=== PATIENT | male | born 1950 | race Caucasian/White ===

== ENCOUNTER 2020-01-22 14:13 | Emergency (ER) | payer MEDICARE, BC ==
--- NOTE | 2020-01-22 14:52 | XRAY ---
Indication: Pain and weakness. Stroke. Multiple contiguous axial images obtained through the head without contrast. Comparison: April 18, 2005. There is age-appropriate global atrophy and minimal periventricular degenerative micro-ischemia bilaterally. New large focus of left temporal occipital encephalomalacia, sequela from old hemorrhage. No acute intracranial hemorrhage, hydrocephalus, or mass effect. Fourth ventricle is midline. Bony calvarium intact. There is mild mucosal thickening of both maxillary and ethmoid sinuses. Mastoid air cells are clear. Impression: 1. 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 2. Atrophy and degenerative micro-ischemia within normal limits for patient's age. 3. No acute intracranial abnormalities. 4. Incidental paranasal sinus disease.
--- NOTE | 2020-01-22 15:08 | XRAY ---
Indication: Chest pain. Comparison: August 16, 2013. Portable chest demonstrates new left costophrenic angle blunting favoring tiny pleural effusion/thickening. Remaining lungs clear. Heart is not enlarged again demonstrating CABG surgery and left AICD. New large bore right dialysis catheter. Bony thorax intact again with mild osteopenia and degenerative changes. Impression: 1. New left costophrenic pleural effusion/thickening and right-sided dialysis catheter. 2. Negative for acute pneumonic process or CHF.
[2020-01-22 15:15] LABS: Absolute Neutrophil Ct (ANC) 6.16 (1.4-6.9); BASOPHIL % 0.4 % (0.0-0.4); Basophil (Absolute #) 0.03 (0-0.4); Eosinophil % 1.5 % (0.00-5.0); Eosinophil (Absolute #) 0.13 (0-0.5); Hemoglobin 11.4 gm/dl (12.5-18.0); Lymphocyte (Absolute #) 1.21 (1.0-4.6); Lymphocytes % 14.3 % (24.0-44.0); Mean Cell Volume 102.9 fl (78-100); Mean Corpuscular Hemoglobin 33.5 pg (26-32); Mean Corpuscular Hgb Concent. 32.6 g/dl (32-36); Mean Platelet Volume 9.4 fl (7.5-11.0); Monocyte (Absolute #) 0.91 (0.0-1.3); Monocytes % 10.8 % (0.0-12.0); Platelet Count 307 K/mm3 (150-450); Red Cell Distribution Width 15.9 % (11.5-14.0); White Blood Count 8.4 K/mm3 (4.0-10.5)
[2020-01-22 16:06] LABS: ALBUMIN 3.7 g/dL (3.5-5.0); ANION GAP 10.7 MEQ/L (5-15); BILIRUBIN,TOTAL 0.5 mg/dL (0.2-1.3); Creatinine 1 1.53 mg/dL (0.66-1.25); EST GLOMERULAR FILTRATION RATE 47.9 ML/MIN; Potassium 4.4 mmol/L (3.5-5.1); Total Protein 6.9 g/dL (6.3-8.2)
[2020-01-22 16:10] LABS: Amphetamine,Urine NEGATIVE (NEGATIVE); Barbiturate,Urine NEGATIVE (NEGATIVE); Benzodiazepine,Urine NEGATIVE (NEGATIVE); Cocaine,Urine NEGATIVE (NEGATIVE); Methadone,Urine NEGATIVE (NEGATIVE); Opiate,Urine NEGATIVE (NEGATIVE); PCP,Urine NEGATIVE (NEGATIVE); THC,Urine NEGATIVE (NEGATIVE)
[2020-01-22 17:23] VITALS: BP 130/73
--- NOTE | 2020-01-22 17:28 | ERPHSYRPT ---
- History of Present Illness Time Seen by Provider: 01/22/20 14:45 Source: patient, family Exam Limitations: clinical condition (Year memory problems following his intracranial bleed 5 years ago) Patient Subjective Stated Complaint: leg weakness Triage Nursing Assessment: pt to ED c/o bilat lower leg weakness onset today getting home from dialysis. pt called and states she could not get him in the house from dialysis and called 911. pt denies pain or any other complaints, just "when my brain tells my legs to move they don't want to." A&Ox4. denies CVA hx. 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 This involve the left temporal occipital. Has a history of a remote lower back injury. He developed weakness in the lower ext remities yesterday and today after dialysis was so weak he could not walk into the house per his . He also 2 weeks ago went to a physician in [place] and was found to have urinary retention of greater than a liter. A Hu catheter was anchored he denies any problems with his bowels he denies any saddle paresthesia. He denies any stool incontinence. Patient is a dialysis patient and had been returned from dialysis today. Denies any neck pain Timing/Duration: yesterday Severity: moderate Character of Deficits: new weakness Deficits: cannot stand, cannot walk Baseline/Normal Cognition: alert oriented x 3 Current Cognition: alert oriented x 3 Baseline Gait: walks w/o assistance Hx Tetanus, Diphtheria Vaccination/Date Given: Yes Hx Influenza Vaccination/Date Given: Yes Hx Pneumococcal Vaccination/Date Given: Yes Travel Risk - International Travel Have you traveled outside of the country in past 3 weeks: No - Coronavirus Screening Are you exhibiting any of the following symptoms?: No Close contact with a COVID-19 positive Pt in past 14-21 Days: No - Review of Systems Constitutional: No Fever, No Chills Eyes: No Symptoms Ears, Nose, & Throat: No Symptoms Respiratory: No Cough, No Dyspnea Cardiac: No Chest Pain, No Edema, No Syncope Abdominal/Gastrointestinal: No Abdominal Pain, No Nausea, No Vomiting, No Diarrhea Genitourinary Symptoms: No Dysuria Musculoskeletal: Back Pain, No Neck Pain Skin: No Rash Neurological: Focal Weakness, Parasthesia, No Dizziness, No Sensory Changes Psychological: No Symptoms Endocrine: No Symptoms All Other Systems: Reviewed and Negative - Past Medical History Pertinent Past Medical History: Yes Cardiac History: Hypertension, Other Endocrine Medical History: Other Other Medical History: chronic renal failure, hyperlipidemia, defibrilator, ischemic heart disease, raynauds syndrome - Past Surgical History Past Surgical History: Yes Cardiac: CABG, Internal Defibrillator Other Surgical History: defib, CABG - Social History Smoking Status: Never smoker Exposure to second hand smoke: No Drug Use: none Patient Lives Alone: No - Nursing Vital Signs Nursing Vital Signs: Initial Vital Signs Pulse Rate 82 01/22/20 14:31 Respiratory Rate 18 01/22/20 14:31 Blood Pressure 115/73 01/22/20 14:31 O2 Sat by Pulse Oximetry 99 01/22/20 14:31 Pain Scale Pain Intensity 0 - [place] Coma Scale Best Eye Response (Jaylin): (4) open spontaneously Best Verbal Response ([place]): (5) oriented Best Motor Response ([place]): (6) obeys commands [place] Total: 15 - Physical Exam General Appearance: no apparent distress, alert Eye Exam: bilateral eye: PERRL, EOMI Ears, Nose, Throat Exam: normal ENT inspection, moist mucous membranes Neck Exam: normal inspection, non-tender, supple Respiratory: normal breath sounds, lungs clear, airway intact, No respiratory distress Cardiovascular: regular rate/rhythm, No edema Gastrointestinal: soft, No tenderness, No distention Back Exam: normal inspection Extremity Exam: normal inspection, other (There is a dressing on the right foot and ankle which the patient says is due to ulcers.), No pedal edema Mental Status: alert, oriented x 3, 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 Exam: normal hearing, normal speech, PERRL, tongue deviation to L, tongue midline, No abnormal pupil position, No abnormal speech, No facial asymmetry, No facial droop, No tongue deviation to R Coordination/Gait: normal finger to nose, abnormal gait (Is difficult to test due to extreme weakness in the lower extremities) Motor/Sensory: sensory deficit (Ems to have some decreased sensation in the lower extremities compared to the upper with light touch or pinprick), weak motor strength RLE, weak motor strength LLE, No pronator drift (R), No pronator drift (L) DTR: bicep (R): 3+, bicep (L): 3+, tricep (R): 3+, tricep (L): 3+, knee (R): 0, knee (L): 0, ankle (R): 0 (To assess due to the dressing in place), ankle (L): 0 Skin Exam: normal color, warm, dry, No rash SpO2 Interpretation: normal SpO2: 97 O2 Delivery: Room Air - Course Nursing assessment & vital signs reviewed: Yes EKG Interpreted by Me: RATE (99), Sinus Rhythm, NORMAL AXIS, Left Bundle Branch Block - Radiology Exams Chest X-ray Interpretation: Reviewed by me, No Pneumonia - CT Exams Head CT Interpretation: Other (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 atrophy and degenerative micro-ischemic changes within normal limits for the patient's age no acute intracranial abnormalities incidental paranasal sinus disease ) Ordered Tests: Active Orders 24 hr Category Date Time Status EKG-ER Only STAT Care 01/22/20 14:20 Active NPO (ED) STAT Care 01/22/20 14:20 Active CHEST 1 VIEW (PORTABLE) Stat Exams 01/22/20 14:21 Completed HEAD WITHOUT CONTRAST [CT] Stat Exams 01/22/20 14:21 Completed CBC W DIFF Stat Lab 01/22/20 14:58 Completed CMP Stat Lab 01/22/20 14:58 Completed CULTURE,URINE Stat Lab 01/22/20 15:43 Received PTT Stat Lab 01/22/20 14:58 Completed TROPONIN Q3H Lab 01/22/20 14:58 Completed TROPONIN Q3H Lab 01/22/20 17:30 Ordered TROPONIN Q3H Lab 01/22/20 20:30 Ordered TROPONIN Q3H Lab 01/22/20 23:30 Ordered TROPONIN Q3H Lab 01/23/20 02:30 Ordered Urine Triage Profile Stat Lab 01/22/20 15:43 Completed Lab/Rad Data: Laboratory Result Diagrams 01/22/20 14:58 01/22/20 14:58 Laboratory Results 01/22/20 01/22/20 01/22/20 Range/Units 15:43 14:58 14:58 WBC (4.0-10.5) K/mm3 RBC (4.1-5.6) M/mm3 Hgb (12.5-18.0) gm/dl Hct (42-50) % MCV (78-100) fl MCH (26-32) pg MCHC (32-36) g/dl RDW (11.5-14.0) % Plt Count (150-450) K/mm3 MPV (7.5-11.0) fl Gran % (36.0-66.0) % Eos # (Auto) (0-0.5) Absolute Lymphs (auto) (1.0-4.6) Absolute Monos (auto) (0.0-1.3) Lymphocytes % (24.0-44.0) % Monocytes % (0.0-12.0) % Eosinophils % (0.00-5.0) % Basophils % (0.0-0.4) % Absolute Granulocytes (1.4-6.9) Basophils # (0-0.4) APTT (24.1-36.1) SECONDS Sodium 132 L (137-145) mmol/L Potassium 4.4 (3.5-5.1) mmol/L Chloride 97 L (98-107) mmol/L Carbon Dioxide 29 (22-30) mmol/L Anion Gap 10.7 (5-15) MEQ/L BUN 19 (9-20) mg/dL Creatinine 1.53 H (0.66-1.25) mg/dL Estimated GFR 47.9 ML/MIN Glucose 123 H (74-106) mg/dL Calcium 9.0 (8.4-10.2) mg/dL Total Bilirubin 0.50 (0.2-1.3) mg/dL AST 36 (17-59) U/L ALT 23 (0-50) U/L Alkaline Phosphatase 143 H (38-126) U/L Troponin I 0.221 H* (0.000-0.034) ng/mL Serum Total Protein 6.9 (6.3-8.2) g/dL Albumin 3.7 (3.5-5.0) g/dL Urine Opiates Level NEGATIVE (NEGATIVE) Ur Methadone NEGATIVE (NEGATIVE) Urine Barbiturates NEGATIVE (NEGATIVE) Ur Phencyclidine (PCP) NEGATIVE (NEGATIVE) Urine Amphetamine NEGATIVE (NEGATIVE) U Benzodiazepine Level NEGATIVE (NEGATIVE) Urine Cocaine NEGATIVE (NEGATIVE) Urine Marijuana (THC) NEGATIVE (NEGATIVE) 01/22/20 01/22/20 Range/Units 14:58 14:58 WBC 8.4 (4.0-10.5) K/mm3 RBC 3.40 L (4.1-5.6) M/mm3 Hgb 11.4 L (12.5-18.0) gm/dl Hct 35.0 L (42-50) % MCV 102.9 H (78-100) fl MCH 33.5 H (26-32) pg MCHC 32.6 (32-36) g/dl RDW 15.9 H (11.5-14.0) % Plt Count 307 (150-450) K/mm3 MPV 9.4 (7.5-11.0) fl Gran % 73.0 H (36.0-66.0) % Eos # (Auto) 0.13 (0-0.5) Absolute Lymphs (auto) 1.21 (1.0-4.6) Absolute Monos (auto) 0.91 (0.0-1.3) Lymphocytes % 14.3 L (24.0-44.0) % Monocytes % 10.8 (0.0-12.0) % Eosinophils % 1.5 (0.00-5.0) % Basophils % 0.4 (0.0-0.4) % Absolute Granulocytes 6.16 (1.4-6.9) Basophils # 0.03 (0-0.4) APTT 30.2 (24.1-36.1) SECONDS Sodium (137-145) mmol/L Potassium (3.5-5.1) mmol/L Chloride (98-107) mmol/L Carbon Dioxide (22-30) mmol/L Anion Gap (5-15) MEQ/L BUN (9-20) mg/dL Creatinine (0.66-1.25) mg/dL Estimated GFR ML/MIN Glucose (74-106) mg/dL Calcium (8.4-10.2) mg/dL Total Bilirubin (0.2-1.3) mg/dL AST (17-59) U/L ALT (0-50) U/L Alkaline Phosphatase (38-126) U/L Troponin I (0.000-0.034) ng/mL Serum Total Protein (6.3-8.2) g/dL Albumin (3.5-5.0) g/dL Urine Opiates Level (NEGATIVE) Ur Methadone (NEGATIVE) Urine Barbiturates (NEGATIVE) Ur Phencyclidine (PCP) (NEGATIVE) Urine Amphetamine (NEGATIVE) U Benzodiazepine Level (NEGATIVE) Urine Cocaine (NEGATIVE) Urine Marijuana (THC) (NEGATIVE) - Progress Progress: unchanged Progress Note: 01/22/20 17:46 This case was discussed with Dr. castro the patient's neurologist Dr. Silva recommended further evaluation but he does not do hospital work. We spoke with Dr. Hyde at [facility] and with Dr. Ace neurosurgery at [facility] who both agreed to accept the patient in transfer. - Departure Departure Disposition: Transfer (Will be transferred to [facility] by ambulance to undergo further evaluation to include rule out spinal stenosis cauda equina syndrome etc.) Clinical Impression: Lower extremity weakness Condition: Fair Critical Care Time: No Referrals: NOMAN ORO [Primary Care Provider] -
[2020-01-22 18:11] VITALS: PULSE 80; O2SAT 96
== END 2020-01-22 18:37 | disposition short-term general hospital (02) ==
LOC: ED 14:13
DX: M62.81 Muscle weakness (generalized) (principal); I10 Essential (primary) hypertension; I12.9 Hypertensive chronic kidney disease with stage 1 through stage 4 chronic kidney disease, or unspecified chronic kidney disease; N18.9 Chronic kidney disease, unspecified; E78.5 Hyperlipidemia, unspecified; Z95.810 Presence of automatic (implantable) cardiac defibrillator; I25.9 Chronic ischemic heart disease, unspecified; I73.00 Raynaud's syndrome without gangrene; R33.9 Retention of urine, unspecified; Z79.899 Other long term (current) drug therapy
CPT/HCPCS: 36415; 70450; 71045; 80053; 80307; 84484; 85025; 85730; 87077; 87086; 87186; 93005; 99285